=== PATIENT | male | born 1955 | race Caucasian/White ===

== ENCOUNTER 2021-01-09 11:59 | Day surgery (SDC) | payer SELFPAY ==
[2021-01-09] VITALS (10 sets, daily range): BP systolic 84–182; BP diastolic 45–96
[~2021-01-09] VITALS: Ht 185.4 cm; Wt 105.5 kg
[2021-01-09] MEDS ORDERED: diphenhydrAMINE 25mg capsule PO PRN (12:20)
[2021-01-09] MEDS ORDERED: normal saline 1,000 ML IV SCH (12:20)
[2021-01-09] MEDS ORDERED: CHOL400T57 PO (12:40)
[2021-01-09] MEDS ORDERED: LISI10TA27 PO (12:40)
[2021-01-09] MEDS ORDERED: ROSU5TAB12 PO (12:40)
[2021-01-09] MEDS ORDERED: ASCO100T12 PO (12:40)
[2021-01-09] MEDS ORDERED: METO25TA6 PO (12:40)
[2021-01-09] MEDS ORDERED: CYAN250010 PO (12:40)
[2021-01-09] MEDS ORDERED: CINN500C2 (12:40)
[2021-01-09] MEDS ORDERED: MAGN400C PO (12:40)
[2021-01-09] MEDS ORDERED: UBID100C16 PO (12:40)
[2021-01-09 13:27] LABS: BASOPHILS % (AUTO) 0.8 % (0-1); EOSINOPHILS # (AUTO) 0.1 X10'3 (0-0.9); EOSINOPHILS % (AUTO) 1.6 % (0-6); HEMATOCRIT 45.9 % (42.0-52.0); HEMOGLOBIN 15.3 g/dl (14.0-17.9); LYMPHOCYTES # (AUTO) 1.3 X10'3 (1.1-4.8); LYMPHOCYTES % (AUTO) 23.8 % (21-51); MEAN CORPUSCULAR HEMOGLOBIN 29.4 PG (27.0-31.0); MEAN CORPUSCULAR HGB CONC 33.3 g/dL (33.0-36.5); MEAN CORPUSCULAR VOLUME 88.3 FL (78-98); MEAN PLATELET VOLUME 7.7 FL (7.4-10.4); MONOCYTES # (AUTO) 0.4 X10'3 (0-0.9); MONOCYTES % (AUTO) 7.7 % (2-12); NEUTROPHILS # (AUTO) 3.5 X10'3 (1.8-7.7); NEUTROPHILS % (AUTO) 66.1 % (42-75); PLATELET COUNT 150 X10'3 (140-440); RED CELL DISTRIBUTION WIDTH 14.2 % (11.5-14.5); WHITE BLOOD COUNT 5.3 X10'3 (4.5-11.0)
[2021-01-09 13:37] LABS: ALBUMIN 3.7 G/DL (3.4-5.0); ANION GAP 9 (8-16); BLOOD UREA NITROGEN 16 MG/DL (7-18); CALCIUM 8.7 MG/DL (8.5-10.1); CHLORIDE 106 MMOL/L (99-107); CREATININE 0.84 MG/DL (0.60-1.10); GLUCOSE 97 MG/DL (70-104); MAGNESIUM 2.2 MG/DL (1.5-2.4); POTASSIUM 4.2 MMOL/L (3.5-5.1); SODIUM 141 MMOL/L (135-145); TOTAL CARBON DIOXIDE 26.4 MMOL/L (24-32); eGFR > 90 ML/MIN
[2021-01-09] MEDS ORDERED: fentaNYL/PF 50MCG/1 ML 2ML syringe ONE ×2 (15:03→16:38)
[2021-01-09] MEDS ORDERED: midazolam 1 mg/ML 2ml injection ONE ×3 (15:03→16:38)
[2021-01-09] MEDS ORDERED: heparin 1,000unit/ml 10ml vial 10 ML ONE (15:03)
[2021-01-09] MEDS ORDERED: LIDOcaine 1% (10mg/ml)w/preservative injection 20ml MDV ONE (15:03)
[2021-01-09] MEDS ORDERED: iohexol 350MG/ML 100ml bottle IV ONE ×4 (15:04→17:10)
[2021-01-09] MEDS ORDERED: heparin 1,000 UNITS/NS 500ml 500 ML ONE (15:04)
[2021-01-09] MEDS ORDERED: nitroGLYCERIN-Tridil 50MG/D5W 250 ML IV ONE (16:47)
[2021-01-09] MEDS ORDERED: ticagrelor 90mg tablet ONE (17:13)
[2021-01-09] MEDS ORDERED: cloNIDine 0.1 mg tablet PO ONE (17:55)
[2021-01-09] MEDS ORDERED: acetaminophen 325mg tablet PO PRN (18:10)
[2021-01-09] MEDS ORDERED: HYDROcodone/acetaminophen 10/325mg tab PO PRN (18:10)
[2021-01-09] MEDS ORDERED: ondansetron/PF 4mg/2ml inj IV PRN (18:10)
[2021-01-09] MEDS ORDERED: HYDROcodone/acetaminophen 5mg/325mg tablet PO PRN (18:10)
[2021-01-09] MEDS ORDERED: normal saline 1000ml 1,000 ML IV SCH (18:10)
[2021-01-09] MEDS ORDERED: proCHLORperazine 10 MG/2 ml inj IV PRN (18:10)
--- NOTE | 2021-01-09 20:25 | NUR ---
Pt sitting up and going over discharge instructions. C/O nausea and then vomited. BP 84/45, HR 45, sinus tessie. No other complaints. Zofran given as ordered. Patient's repeat BP 136/76 and manual BP 117/70. Patient stated he was feeling better and thought the sandwich he ate just didn't sit well after not eating all day. Groin site CDI, no bleeding or hematoma noted.
--- NOTE | 2021-01-09 20:54 | NUR ---
Reviewed discharge instructions with patient and his . All questions answered. Changes in medication and new prescriptions explained to patient. Patient's will pickup medications from pharmacy. Right groin site CDI, no bleeding or hematoma noted. Patient discharged home. Taken out to 's car in w/c. All belongings with patient.
== END 2021-01-09 20:54 | disposition home or self-care (01) ==
LOC: SSTAY O 11:59
PROVIDERS: ATTEND Internal Medicine Cardiovascular Disease
DX: I25.110 Atherosclerotic heart disease of native coronary artery with unstable angina pectoris (principal); I25.82 Chronic total occlusion of coronary artery; I10 Essential (primary) hypertension; E78.5 Hyperlipidemia, unspecified; Z79.899 Other long term (current) drug therapy; Z82.49 Family history of ischemic heart disease and other diseases of the circulatory system
CPT/HCPCS: 36415; 80048; 83735; 85025; 85610; 93005; 93458; 99152; 99153; C1725; C1751; C1760; C1769; C1874; C1894; C9607; J1644; J2001; J2250; J2405; J3010; J7030; Q0163; Q9967; A4620; A6258; J3490

== ENCOUNTER 2024-03-30 08:03 | Day surgery (SDC) | payer MEDICARE ==
[~2024-03-30] VITALS: Ht 185.4 cm; Wt 110.0 kg
[2024-03-30] VITALS (10 sets, daily range): BP systolic 136–164; BP diastolic 70–91; PULSE 51–64; RESP 14–17; TEMP 98.3; O2SAT 94–97
[~2024-03-30 08:03] MED LIST: ASCO100T12 PO; CHOL400T57 PO; CINN500C2; CYAN250010 PO; LISI10TA27 PO; LOP25T PO; MAGN400C PO; ROSU5TAB12 PO; UBID100C16 PO
[2024-03-30] MEDS ORDERED: METO25TA6 PO (08:55)
[2024-03-30] MEDS ORDERED: ROSU40TA22 PO (08:55)
[2024-03-30] MEDS ORDERED: EZET10TA48 PO (08:57)
[2024-03-30] MEDS ORDERED: PANT40TA54 PO (08:57)
[2024-03-30] MEDS ORDERED: NITR0.4T51 SL (08:57)
[2024-03-30] MEDS ORDERED: ASPI81TA52 PO (08:57)
[2024-03-30 09:25] LABS: BASOPHILS % (AUTO) 0.8 % (0-1); EOSINOPHILS # (AUTO) 0.1 X10'3 (0-0.9); EOSINOPHILS % (AUTO) 2.2 % (0-6); HEMATOCRIT 49.2 % (42.0-52.0); HEMOGLOBIN 16.4 g/dl (14.0-17.9); LYMPHOCYTES # (AUTO) 1.4 X10'3 (1.1-4.8); LYMPHOCYTES % (AUTO) 28.3 % (21-51); MEAN CORPUSCULAR HEMOGLOBIN 29.2 PG (27.0-31.0); MEAN CORPUSCULAR HGB CONC 33.4 g/dL (33.0-36.5); MEAN CORPUSCULAR VOLUME 87.4 FL (78-98); MEAN PLATELET VOLUME 7.2 FL (7.4-10.4); MONOCYTES # (AUTO) 0.3 X10'3 (0-0.9); MONOCYTES % (AUTO) 6.9 % (2-12); NEUTROPHILS # (AUTO) 3.1 X10'3 (1.8-7.7); NEUTROPHILS % (AUTO) 61.8 % (42-75); PLATELET COUNT 171 X10'3 (140-440); RED BLOOD COUNT 5.63 X10'6 (4.70-6.10); RED CELL DISTRIBUTION WIDTH 14.7 % (11.5-14.5); WHITE BLOOD COUNT 4.9 X10'3 (4.5-11.0)
[2024-03-30 09:32] LABS: PROTHROMBIN TIME 10.6 SECONDS (9.0-12.0)
[2024-03-30 09:34] LABS: ALBUMIN 3.8 G/DL (3.4-5.0); ANION GAP 7 (8-16); BLOOD UREA NITROGEN 12 MG/DL (7-18); BUN/CREATININE RATIO 13.8 (10.0-20.0); CALCIUM 8.7 MG/DL (8.5-10.1); CHLORIDE 105 MMOL/L (99-107); CREATININE 0.87 MG/DL (0.60-1.10); GLUCOSE 146 MG/DL (70-104); MAGNESIUM 2.2 MG/DL (1.5-2.4); POTASSIUM 4.3 MMOL/L (3.5-5.1); SODIUM 138 MMOL/L (135-145); TOTAL CARBON DIOXIDE 25.9 MMOL/L (24-32); eCRCL 92 ML/MIN; eGFR 87 ML/MIN
[2024-03-30] MEDS: normal saline 1,000 ML IV SCH (09:42)
[2024-03-30] MEDS: diphenhydrAMINE 25mg capsule PO PRN (09:43)
[2024-03-30] MEDS: sodium bicarbonate 1meq/ml syr 150 ML in dextrose 5%-water 1,000 ML IV ONE (09:43)
[2024-03-30] MEDS ORDERED: LIDOcaine 1% 30ml preserv. free vial ONE (10:32)
[2024-03-30] MEDS ORDERED: fentaNYL/PF 50MCG/1 ML 2ML syringe ONE (10:32)
[2024-03-30] MEDS ORDERED: verapamil 2.5 mg/ml inj IV ONE (10:32)
[2024-03-30] MEDS ORDERED: midazolam 1 mg/ML 2ml injection ONE ×3 (10:32→11:54)
[2024-03-30] MEDS ORDERED: iohexol 350 MG/ML 50ML vial IV ONE (10:32)
[2024-03-30] MEDS ORDERED: heparin 1,000unit/ml 10ml vial 10 ML ONE (10:32)
[2024-03-30] MEDS ORDERED: iohexol 350MG/ML 100ml bottle IV ONE ×2 (10:33→12:14)
[2024-03-30] MEDS ORDERED: LIDOcaine 1% (10mg/ml) 2ml vial ONE (10:33)
[2024-03-30] MEDS ORDERED: nitroGLYCERIN 500mcg/5mL D5W 5 ML IV ONE (10:53)
[2024-03-30] MEDS ORDERED: clopidogrel 300mg tablet ONE (12:51)
[2024-03-30] MEDS ORDERED: HYDROcodone/acetaminophen 5mg/325mg tablet PO PRN (13:15)
[2024-03-30] MEDS ORDERED: ondansetron/PF 4mg/2ml inj IV PRN (13:15)
[2024-03-30] MEDS ORDERED: HYDROcodone/acetaminophen 10/325mg tab PO PRN (13:15)
[2024-03-30] MEDS ORDERED: proCHLORperazine 10 MG/2 ml inj IV PRN (13:15)
== END 2024-03-30 16:20 | disposition home or self-care (01) ==
LOC: SSTAY O 08:03
PROVIDERS: ATTEND Internal Medicine Cardiovascular Disease
DX: I25.10 Atherosclerotic heart disease of native coronary artery without angina pectoris (principal); I10 Essential (primary) hypertension; E78.00 Pure hypercholesterolemia, unspecified; K21.9 Gastro-esophageal reflux disease without esophagitis; Z79.82 Long term (current) use of aspirin; Z79.899 Other long term (current) drug therapy; Z95.5 Presence of coronary angioplasty implant and graft; Z82.3 Family history of stroke; Z82.49 Family history of ischemic heart disease and other diseases of the circulatory system
CPT/HCPCS: 36415; 80048; 83735; 85025; 85610; 93005; 93458; 99152; 99153; A6258; A6402; C1751; C1769; C1874; C1894; C9600; J1644; J2001; J2250; J3010; J3490; J7030; J7070; Q0163; Q9967; Z7610; A6449